=== PATIENT | female | born 1940 | race Caucasian/White ===

== ENCOUNTER → 2019-07-16 | Day surgery (SDC) | payer MEDICARE ==
--- NOTE | 2019-07-16 16:16 | RADIOLOGY REPORT (SQ) ---
EXAM DESCRIPTION: ARTHRO SHOULDER INJECTION; FLUORO/NEEDLE PLACEMENT COMPLETED DATE/TIME: 07/16/2019 3:34 pm; 07/16/2019 3:35 pm REASON FOR STUDY: M25.511 PAIN IN RIGHT SHOULDER M25.511 PAIN IN RIGHT SHOULDER COMPARISON: None. FLUOROSCOPY TIME: 2 SECONDS OF FLUOROSCOPY WAS USED. 1 images saved to PACS. LIMITATIONS: None. PROCEDURE: Procedure, risks, benefits and alternatives explained to patient who then gave written co nsent. The right shoulder was marked and a time out was called for correct procedure verification. P osterior entry site marked using fluoroscopic guidance. Shoulder prepped and draped using sterile te chnique. Local anesthesia achieved using 1% lidocaine injection. Hypodermic needle introduced into the joint space under direct fluoroscopic visualization. 1 mL Omnipaque 300 instilled to confirm int ra-articular position. Dilute gadolinium solution then injected. Needle removed and entry site cover ed with sterile bandage. No immediate complications noted. TECHNIQUE: Digital images acquired during fluoroscopy and stored on PACS. Patient immediately take n to the MR suite for additional imaging. INJECTION LOCATION: Posterior right shoulder. CONTRAST TYPE AND AMOUNT: 12 mL Dotarem/Saline mixture. IMPRESSION: SUCCESSFUL NEEDLE PLACEMENT AND INJECTION FOR RIGHT SHOULDER MR ARTHROGRAM USING POSTERI OR APPROACH. COMMENT: Quality ID 145: Final reports for procedures using fluoroscopy that document radiation exp osure indices, or exposure time and number of fluorographic images (if radiation exposure indices are not available) TECHNICAL DOCUMENTATION: JOB ID: [id number] [employer]- All Rights Reserved Reading location - IP/workstation name: [email or web address] [id number]
--- NOTE | 2019-07-16 16:16 | RADIOLOGY REPORT (SQ) ---
EXAM DESCRIPTION: ARTHRO SHOULDER INJECTION; FLUORO/NEEDLE PLACEMENT COMPLETED DATE/TIME: 07/16/2019 3:34 pm; 07/16/2019 3:35 pm REASON FOR STUDY: M25.511 PAIN IN RIGHT SHOULDER M25.511 PAIN IN RIGHT SHOULDER COMPARISON: None. FLUOROSCOPY TIME: 2 SECONDS OF FLUOROSCOPY WAS USED. 1 images saved to PACS. LIMITATIONS: None. PROCEDURE: Procedure, risks, benefits and alternatives explained to patient who then gave written co nsent. The right shoulder was marked and a time out was called for correct procedure verification. P osterior entry site marked using fluoroscopic guidance. Shoulder prepped and draped using sterile te chnique. Local anesthesia achieved using 1% lidocaine injection. Hypodermic needle introduced into the joint space under direct fluoroscopic visualization. 1 mL Omnipaque 300 instilled to confirm int ra-articular position. Dilute gadolinium solution then injected. Needle removed and entry site cover ed with sterile bandage. No immediate complications noted. TECHNIQUE: Digital images acquired during fluoroscopy and stored on PACS. Patient immediately take n to the MR suite for additional imaging. INJECTION LOCATION: Posterior right shoulder. CONTRAST TYPE AND AMOUNT: 12 mL Dotarem/Saline mixture. IMPRESSION: SUCCESSFUL NEEDLE PLACEMENT AND INJECTION FOR RIGHT SHOULDER MR ARTHROGRAM USING POSTERI OR APPROACH. COMMENT: Quality ID 145: Final reports for procedures using fluoroscopy that document radiation exp osure indices, or exposure time and number of fluorographic images (if radiation exposure indices are not available) TECHNICAL DOCUMENTATION: JOB ID: [id number] 1183 [employer]- All Rights Reserved Reading location - IP/workstation name: [email or web address] [id number]
--- NOTE | 2019-07-16 17:39 | RADIOLOGY REPORT (SQ) ---
EXAM DESCRIPTION: MRI RT UPPER JOINT WITH COMPLETED DATE/TIME: 07/16/2019 3:07 pm TECHNIQUE: Right shoulder images acquired and stored on PACS. Oblique coronal, oblique sagittal, and axial imaging to include fat sensitive sequences as T1, water sensitive sequences as FST2/STIR, and contrast sensitive sequences as FST1. . LIMITATIONS: None. FINDINGS: JOINT DISTENTION: Adequate BONE MARROW AND CORTEX: Cystic changes in the lateral humeral head. No fracture or destructive bone lesion. AC JOINT: Mild osteoarthritis. GLENOHUMERAL JOINT: Normal glenohumeral joint space alignment. ROTATOR CUFF: Full-thickness tear of the supraspinatus tendon with approximately 5 mm of retraction. There is mild atrophy of the supraspinatus muscle. The infraspinatus tendon is intact. There is th ickening and mild abnormal signal in the subscapularis tendon consistent with tendinosis. Teres juan r tendon is intact with normal appearance. LABRUM AND BICEPS LABRAL COMPLEX: Abnormal signal in the anterior to superior glenoid labrum consiste nt with labral tear. There also small paralabral cysts along the posterior margin. INFERIOR LABRAL COMPLEX: Intact. ADJACENT SOFT TISSUES: No abnormal signal. OTHER: No other significant finding. IMPRESSION: 1. 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 2. Anterior to superior labral tear, with small paralabral cysts along the posterior margin of the gl enoid labrum. 3. 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 4. Mild osteoarthritis at the acromioclavicular joint. TECHNICAL DOCUMENTATION: JOB ID: [id number]- All Rights Reserved REASON FOR STUDY: M25.511 PAIN IN RIGHT SHOULDER M25.511 PAIN IN RIGHT SHOULDER M25.511 PAIN IN RIGHT SHOULDER M25.511 PAIN IN RIGHT SHOULDER chronic right anterior shoulder pain. Decreased range of motion. Chronic pain becoming worse. No recent reported injury. History of ski n cancer. COMPARISON: None. Reading location - IP/workstation name: [email or web address]
== END ==
LOC: RAD 14:44 → EDSTATUS 15:00
PROVIDERS: ATTEND Orthopaedic Surgery
DX: M25.511 Pain in right shoulder (principal); M75.121 Complete rotator cuff tear or rupture of right shoulder, not specified as traumatic; S43.431A Superior glenoid labrum lesion of right shoulder, initial encounter; X58.XXXA Exposure to other specified factors, initial encounter; M19.011 Primary osteoarthritis, right shoulder
CPT/HCPCS: 73222; 77002; 23350; A9576